=== PATIENT | male | born 1960 | race Two or more races ===

== ENCOUNTER 2025-07-24 12:35 | Emergency (ER) | payer MEDICAID, SELFPAY ==
[2025-07-24 12:38] VITALS: BMI 30.1
[2025-07-24 12:52] VITALS: BP 146/96; PULSE 84; RESP 18; TEMP 36.8; O2SAT 98
--- NOTE | 2025-07-24 13:25 | XR_ITS ---
Exam: Chest PA, lateral 2 views Technique: Chest upright PA lateral 2 views Date and time of exam: 07/24/2025, 1:34 PM INDICATION: Chest pain Findings: Left-sided dual lead cardiac pacing device. Cardiac silhouette is enlarged. There is central pulmonary vascular prominence. Lungs are hyperinflated. Ill-defined areas of opacification bilateral lung bases. Upper zones are clear. No pneumothorax. No acute bony abnormality. . Impression: Hyperinflation Cardiomegaly. Pulmonary vascular prominence. Scattered bibasilar atelectasis vs infiltrates.
--- NOTE | 2025-07-24 13:25 | EKG_ITS ---
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
--- NOTE | 2025-07-24 13:27 | EDRME_ITS ---
Rapid Medical Screening Exam RME Arrival date/time: 07/24/25 12:35 Chief Complaint: Extremity Injury, Lower Time Seen by Provider: 07/24/25 13:08 Vital signs: Vital Signs Temperature 98.2 F 07/24/25 12:52 Pulse Rate 84 07/24/25 12:52 Respiratory Rate 18 07/24/25 12:52 Blood Pressure 146/96 H 07/24/25 12:52 Pulse Oximetry (%) 98 07/24/25 12:52 Oxygen Delivery Method Room Air 07/24/25 12:52 RME Narrative: 64-year-old male reports he just had a pacemaker done about a week ago in [place] and decided to come to [place]. States he is missing a lot of the medications that they were supposed to give him during discharge one of them being Lasix. States he is on a total of 12 medications unsure of the names but was only given about 7 of them. Having shortness of breath and leg swelling which is the reason he came in today
[2025-07-24 14:28] LABS: Basophils # (Auto) 0.0 Thou/mm3 (0.0-0.2); Basophils % (Auto) 1 % (0-2.5); Eosinophils # (Auto) 0.1 Thou/mm3 (0.0-0.5); Eosinophils % (Auto) 3 % (0-10); Hematocrit 34.5 % (41.0-53.0); Hemoglobin 10.9 g/dL (13.5-16.0); Immature Granulocytes Auto 0.01 Thou/mm3 (0.00-0.00); Lymphocytes # (Auto) 0.9 Thou/mm3 (1.0-4.8); Lymphocytes % (Auto) 21 % (10-50); Mean Corpuscular HGB Conc 31.6 g/dl (31.0-37.0); Mean Corpuscular Hemoglobin 27.7 pg (25.0-35.0); Mean Corpuscular Volume 88 fL (80-100); Monocytes # (Auto) 0.5 Thou/mm3 (0.0-0.8); Monocytes % (Auto) 11 % (0-12); Neutrophils # (Auto) 2.7 Thou/mm3 (1.8-7.7); Neutrophils % (Auto) 64 % (37-80); Nucleated Red Blood Cell # 0.00 Thou/mm3 (0.00-0.00); Nucleated Red Blood Cell % 0 /100 WBC (0); Platelet Count 105 Thou/mm3 (140-440); RDW Standard Deviation 54.9 fL (35.1-43.9); Red Blood Count 3.93 Miln/mm3 (4.50-5.90); White Blood Count 4.2 Thou/mm3 (3.8-10.6)
[2025-07-24 14:37] LABS: Collection Type, Urine Clean Catch; Squamous Epithelial Cell,Urine 0 /hpf (0-5)
[2025-07-24 14:42] LABS: B-Type Natriuretic Peptide 723 pg/mL (0-100)
[2025-07-24 14:43] LABS: Alanine Aminotransferase 39 U/L (10-49); Albumin, Serum 3.9 gm/dL (3.4-4.8); Albumin/Globulin Ratio 1.6 (1.2-2.2); Alkaline Phosphatase 102 U/L (46-116); Anion Gap 8 (7-16); Aspartate Amino Transferase 43 U/L (0-34); BUN/Creatinine Ratio 15 Ratio (12-20); Bilirubin,Total 1.0 mg/dL (0.3-1.2); Blood Urea Nitrogen 15 mg/dL (9-23); Calcium 9.2 mg/dL (8.3-10.6); Calcium (Corrected) 9.3 mg/dL (8.5-10.1); Carbon Dioxide 27.0 mMol/L (20.0-31.0); Chloride 108 mMol/L (98-107); Creatinine (Component) 1.0 mg/dL (0.6-1.3); Estimated Creatinine Clearance 87.6 mL/min (>60); Globulin 2.4 gm/dL (2.3-3.5); Glucose 153 mg/dL (74-106); Osmolality,Calculated 288 (275-295); Potassium 3.6 mMol/L (3.4-5.1); Sodium 143 mMol/L (136-145); Total Protein 6.3 gm/dL (5.7-8.2); Troponin I 0.022 ng/mL (0.0-0.045); eGFR > 60 See Note
[2025-07-24 14:48] LABS: Bilirubin,Urine Negative (Negative); Blood,Urine Negative (Negative); Clarity,Urine Clear (Clear/Hazy); Color,Urine Lt-Yellow (Lt Yel-Yel); Glucose, Urine Negative (Negative); Ketones,Urine Negative (Negative); Leukocyte Esterase,Urine Negative (Negative); Nitrite,Urine Negative (Negative); PH,Urine 6.0 (5.0-7.0); Protein,Urine Negative (Neg - Trace); RBC,Urine 1 /hpf (0-3); Specific Gravity,Urine 1.017 (1.001-1.035); Urobilinogen,Urine Negative mg/dL (0.0-1.0); WBC,Urine < 1 /hpf (0-5)
[2025-07-24 14:53] VITALS: BP 149/93; PULSE 86; RESP 16; TEMP 36.6; O2SAT 98
[2025-07-24 14:54] LABS: Amphetamine/Methamp Scrn,U Negative (Negative); Barbiturate Screen,Urine Negative (Negative); Benzodiazepines Screen,Urine Negative (Negative); Benzoylecgonine Screen, Ur Negative (Negative); Fentanyl Screen,Urine Negative (Negative); Opiate Screen,Urine Negative (Negative); THC Screen,Urine Negative (Negative)
--- NOTE | 2025-07-24 15:45 | EDNOTE_ITS ---
Lower Extremity Injury RME/HPI General Chief Complaint: Extremity Injury, Lower Stated Complaint: LEG SWELLING S/P PACEMAKER Time Seen by Provider: 07/24/25 13:08 Arrival date/time: 07/24/25 12:35 RME / HPI RME / HPI Narrative: 64-year-old male reports he just had a pacemaker done about a week ago in [place] and decided to come to [place]. States he is missing a lot of the medications that they were supposed to give him during discharge one of them being Lasix. States he is on a total of 12 medications unsure of the names but was only given about 7 of them. Having shortness of breath and leg swelling which is the reason he came in today. This been ongoing for the last several weeks. Denies any other complaints patient is ambulatory. Related Data Previous Rx's ?Medication ?Instructions ?Recorded furosemide 40 mg tablet (Lasix) 40 mg PO QAM #30 tabs 07/24/25 potassium chloride 20 mEq 20 meq PO QDAY #30 tabs 06/27 0/25 tablet,extended release(part/cryst) Allergies Allergy/AdvReac Type Severity Reaction Status Date / Time No Known Allergies Allergy Verified 07/24/25 12:37 Review of Systems Review of Systems Narrative Review of Systems: Review of system reviewed and within normal limits except mentioned in HPI ED Exam Narrative Physical exam: VITAL SIGNS: Reviewed. GENERAL APPEARANCE: Alert and interactive, follows commands, no acute distress, HEAD AND FACE: Non-traumatic. ENT: PERRL, pink conjunctivitis, eyelid no trauma, Mucous membrane moist. NECK: Supple, nontender, no nuchal rigidity. CHEST: No tenderness, no crepitus, no paradoxical movement, no retractions. LUNGS: Clear, well ventilated, symmetric, no rales, no wheezing, no ronchi, no stridor, good breath sounds bilaterally. HEART: Regular rate, regular rhythm, no murmur, no gallops. ABDOMEN: Soft, positive bowel sounds, nondistended, no guarding, nontender, no rebound, no masses, RECTAL: Deferred. GENITAL: Deferred. NEUROLOGICAL: Gross motor function intact sensory function intact, Appropriate for age. MUSCULOSKELETAL: low back nontender, full range of motion. EXTREMITIES: +2 bilateral lower extremity edema, Nontender, full range of mo tion. SKIN: Color pink, dry, no rash, no lacerations, no abrasions, no contusions. LYMPHATICS: Deferred. Course Quality Measures none Orders Category Date Time Status EKG (ED ONLY) *Do not use* NOW Care 07/24/25 13:26 Completed IV [Insert IV] NOW Care 07/24/25 13:26 Active EKG (ED Only) Stat Exams 07/24/25 13:25 Draft XR chest 2V Stat Exams 07/24/25 13:25 Completed BNP [B-Type Natriuretic Peptide] Stat Lab 07/24/25 14:00 Completed CBC Stat Lab 07/24/25 14:00 Completed CMP [Comprehensive Metabolic Panel] Stat Lab 07/24/25 14:00 Completed Drug Screen,Urine Stat Lab 07/24/25 14:25 Completed Troponin I Stat Lab 07/24/25 14:00 Completed UA [Urinalysis] Stat Lab 07/24/25 14:25 Completed Aspirin Med 07/24/25 13:26 Discontinued 325 mg PO X1 ONE Furosemide [Lasix] Med 07/24/25 15:44 Discontinued 40 mg PO X1 ONE Ibuprofen Tab [Motrin Tab] Med 07/24/25 15:44 Discontinued 800 mg PO X1 ONE Vital Signs Vital signs: Vital Signs Temperature 98.2 F 07/24/25 12:52 Pulse Rate 84 07/24/25 12:52 Respiratory Rate 18 07/24/25 12:52 Blood Pressure 146/96 H 07/24/25 12:52 Pulse Oximetry (%) 98 07/24/25 12:52 Oxygen Delivery Method Room Air 07/24/25 12:52 Extremity Injury, Lower MDM Narrative MDM Narrative:: 64-year-old male reports he just had a pacemaker done about a week ago in [place] and decided to come to [place]. States he is missing a lot of the medications that they were supposed to give him during discharge one of them being Lasix. States he is on a total of 12 medications unsure of the names but was only given about 7 of them. Having shortness of breath and leg swelling which is the reason he came in today. This been ongoing for the last several weeks. Denies any other complaints patient is ambulatory. Patient's workup today came back unremarkable except for slightly elevated BNP. Patient was given a dose of Lasix in the emergency room. Patient will be sent home on Lasix. She is satting 98% on room air Chest x-ray showed Hyperinflation Cardiomegaly. Pulmonary vascular prominence. Scattered bibasilar atelectasis vs infiltrates. Patient data External records reviewed:: None Clinical information provided by:: patient Social determinants that could affect healthcare access:: none Patient has the following chronic illnesses:: History of congestive heart failure, hypertension How is presenting disease/condition affected by chronic disease/condition?: ex acerbated by Evaluation data The following diagnostics were reviewed and interpreted by me:: lab results, radiology exam(s) and EKG tracing(s) Lab and/or radiology exams considered but not ordered:: None Interpretation Summary: EKG as instructed by me showed atrial fibrillation, ventricular rate of 96 bpm, no ST segment elevation or depression noted. Medications / Prescriptions Medications or Prescriptions considered but not ordered:: None Medication administrations:: Medication Administration History Discontinued Medications Aspirin (Aspirin 325 Mg Tablet) 325 mg PO X1 ONE Stop: 07/24/25 13:27 Last Admin: 07/24/25 13:36 Dose: Not Given Documented By: HENRRY Non-Admin Reason: Patient Refused Furosemide (Furosemide 40 Mg Tablet) 40 mg PO X1 ONE Stop: 07/24/25 15:45 Last Admin: 07/24/25 15:52 Dose: 40 mg Documented By: JUAN PABLO Ibuprofen (Ibuprofen Tab 400 Mg Tablet) 800 mg PO X1 ONE Stop: 07/24/25 15:45 Last Admin: 07/24/25 15:52 Dose: 800 mg Documented By: JUAN PABLO Motrin Lasix and aspirin Consultations Consultation(s) initiated? (list below): No Diagnosis Extremity Injury, Lower Differential Diagnosis: other (Lower leg edema, history of CHF, hypertension) Most likely diagnosis given after review of the tests above:: Lower leg edema, history of CHF Admission Indicated Admission indicated?: not indicated Admission Request Was there a request for admission?: No Disposition Plan Disposition Plan: Discharge Discharge Attestation Discharge Attestation: The patient was given an opportunity to ask questions and understood the discharge instructions. Discharge instructions specifically effects, indications for sooner follow up or return to the emergency department, and the expected course of current diagnosis. Patient condition: Stable Discharge Plan Plan Patient Disposition: HOME (Self Care) Discharge Disposition comment: stable Prescriptions/Referrals Prescriptions/Med Rec: New furosemide [Lasix] 40 mg tablet 40 mg PO QAM Qty: 30 0RF potassium chloride 20 mEq tablet,ER particles/crystals 20 meq PO QDAY Qty: 30 0RF Referrals: No Primary/Family,Physician [Primary Care Provider] - In 1 week Problem List Clinical Impression: Leg swelling Patient/Caregiver Discharge Instructions Discharge Activity: activity as tolerated Education Materials: ED Leg Swelling in Both Legs Additional Instructions: Thank you for the opportunity for serving you today. You are stable for discharged . You are advised to: Follow-up with your PCP in 1 to 2 days Return to ED for worsening of symptoms Print Language: Iraqi Stand Alone Forms: Joelle Award Info., Patient Portal Info Letter PA/EMPLOYEE RELATIONS DIRECTOR Supervising Physician PA/EMPLOYEE RELATIONS DIRECTOR Supervising Physician: MD [place]
[2025-07-24 15:52] VITALS: BP 150/123; PULSE 86
[2025-07-24] MEDS: IBUPROFEN TAB 400 MG TABLET 800 MG PO (15:52)
== END 2025-07-24 16:16 | disposition home or self-care (01) ==
PROVIDERS: Physician Assistant; Emergency Provider Family Medicine
DX: M79.89 Other specified soft tissue disorders (principal); I48.91 Unspecified atrial fibrillation; I11.0 Hypertensive heart disease with heart failure; I50.9 Heart failure, unspecified
CPT/HCPCS: 36415; 71046; 80053; 80307; 81001; 83880; 84484; 85025; 93005; 99283; A9270

== ENCOUNTER 2025-07-29 08:12 | Emergency (ER) | payer MEDICAID, SELFPAY ==
[2025-07-29 08:13] VITALS: BMI 32.3
--- NOTE | 2025-07-29 08:16 | EKG_ITS ---
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: : 1960 Requested By: ED Temporary Provider Order Number: [id number] Reading MD: ED Temporary Provider Measurements Intervals [place] Rate: 93 P: [place]: QRS: -59 QRSD: 138 T: 115 QT: 393 QTc: 490 Interpretive Statements ATRIAL FIBRILLATION LEFT AXIS DEVIATION [QRS AXIS < -30] INTRAVENTRICULAR CONDUCTION DELAY [130+ ms QRS DURATION] POSSIBLE ANTERIOR MYOCARDIAL INFARCTION , OF INDETERMINATE AGE [30 ms Q WAVE IN V3/V4, OR R < 0.2 mV IN V4] Compared to ECG 07/24/2025 13:28:20 Myocardial infarct finding now present Left ventricular hypertrophy no longer present /store/S0/[id number]/[id number]
[2025-07-29 08:21] VITALS: BP 139/105; PULSE 86; RESP 24; TEMP 36.7; O2SAT 95
--- NOTE | 2025-07-29 08:30 | XR_ITS ---
Examination: PA lateral chest 2 views TECHNIQUE: Upright PA lateral chest 2 views Date and time: July 29, 2025 0940 hours, comparison July 24, 2025 INDICATIONS: Chest pain today. FINDINGS: Mild prominence left ventricle. Cardiac leads satisfactory position. No lobar pneumonia or pulmonary edema. Minor blunting of bilateral costophrenic angles. Mild vascular congestion IMPRESSION: Mild vascular congestion
--- NOTE | 2025-07-29 08:30 | XR_ITS ---
Examination: Venous duplex lower extremity sonogram, bilateral. Date and time of exam: July 29, 2025 0851 hours INDICATIONS: Bilateral leg swelling and pain beginning 4 days ago Technique: Multiple sonographic images of the deep venous system have been obtained. B-mode/2-D grayscale imaging of vascular structures and Doppler spectral analysis (waveforms) and color performed Both legs are examined. Findings: Deep venous systems do not demonstrate abnormal echogenicity. All visualized deep veins exhibit compressibility. All visualized deep veins exhibit augmentation. Impression: Negative for deep vein thrombosis
--- NOTE | 2025-07-29 08:31 | PD.EDRME ---
Rapid Medical Screening Exam RME Arrival date/time: 07/29/25 08:12 64-year-old male presents to Emergency Department a stating that he had a pacemaker placed in [place] approximately 3 weeks ago patient reports lower extremity swelling and difficulty sleeping Chief Complaint: Shortness of Breath/Dyspnea Vital signs: Vital Signs Temperature 98.1 F 07/29/25 08:21 Pulse Rate 86 07/29/25 08:21 Respiratory Rate 24 H 07/29/25 08:21 Blood Pressure 139/105 H 07/29/25 08:21 Pulse Oximetry (%) 95 07/29/25 08:21 Oxygen Delivery Method Room Air 07/29/25 08:21
[2025-07-29 08:52] LABS: Collection Type, Urine Clean Catch; RBC,Urine 0 /hpf (0-3); Squamous Epithelial Cell,Urine 0 /hpf (0-5)
[2025-07-29 08:55] LABS: Bilirubin,Urine Negative (Negative); Blood,Urine Negative (Negative); Clarity,Urine Clear (Clear/Hazy); Color,Urine Colorless (Lt Yel-Yel); Culture Indicated,Urine Not Indicated; Glucose, Urine Negative (Negative); Ketones,Urine Negative (Negative); Leukocyte Esterase,Urine Negative (Negative); Nitrite,Urine Negative (Negative); PH,Urine 7.0 (5.0-7.0); Protein,Urine Negative (Neg - Trace); Specific Gravity,Urine 1.007 (1.001-1.035); Urobilinogen,Urine Negative mg/dL (0.0-1.0); WBC,Urine < 1 /hpf (0-5)
[2025-07-29 09:02] LABS: Amphetamine/Methamp Scrn,U Negative (Negative); Barbiturate Screen,Urine Negative (Negative); Benzodiazepines Screen,Urine Negative (Negative); Benzoylecgonine Screen, Ur Negative (Negative); Fentanyl Screen,Urine Negative (Negative); Opiate Screen,Urine Negative (Negative); THC Screen,Urine Negative (Negative)
[2025-07-29 10:15] LABS: Basophils # (Auto) 0.0 Thou/mm3 (0.0-0.2); Basophils % (Auto) 1 % (0-2.5); Eosinophils # (Auto) 0.1 Thou/mm3 (0.0-0.5); Eosinophils % (Auto) 2 % (0-10); Hematocrit 36.9 % (41.0-53.0); Hemoglobin 11.5 g/dL (13.5-16.0); Immature Granulocytes Auto 0.02 Thou/mm3 (0.00-0.00); Lymphocytes # (Auto) 1.2 Thou/mm3 (1.0-4.8); Lymphocytes % (Auto) 22 % (10-50); Mean Corpuscular HGB Conc 31.2 g/dl (31.0-37.0); Mean Corpuscular Hemoglobin 27.5 pg (25.0-35.0); Mean Corpuscular Volume 88 fL (80-100); Monocytes # (Auto) 0.8 Thou/mm3 (0.0-0.8); Monocytes % (Auto) 14 % (0-12); Neutrophils # (Auto) 3.3 Thou/mm3 (1.8-7.7); Neutrophils % (Auto) 61 % (37-80); Nucleated Red Blood Cell # 0.00 Thou/mm3 (0.00-0.00); Nucleated Red Blood Cell % 0 /100 WBC (0); Platelet Count 85 Thou/mm3 (140-440); RDW Standard Deviation 54.6 fL (35.1-43.9); Red Blood Count 4.18 Miln/mm3 (4.50-5.90); White Blood Count 5.4 Thou/mm3 (3.8-10.6)
[2025-07-29 10:25] LABS: INR 1.3 (0.9-1.3); Partial Thromboplastin Time 30.0 Seconds (22.0-36.0); Prothrombin Time 13.7 Seconds (9.0-12.2)
[2025-07-29 10:30] LABS: Alanine Aminotransferase 49 U/L (10-49); Albumin, Serum 4.2 gm/dL (3.4-4.8); Albumin/Globulin Ratio 1.7 (1.2-2.2); Alkaline Phosphatase 95 U/L (46-116); Anion Gap 11 (7-16); Aspartate Amino Transferase 61 U/L (0-34); BUN/Creatinine Ratio 15 Ratio (12-20); Bilirubin,Total 1.1 mg/dL (0.3-1.2); Blood Urea Nitrogen 17 mg/dL (9-23); Calcium 9.7 mg/dL (8.3-10.6); Calcium (Corrected) 9.7 mg/dL (8.5-10.1); Carbon Dioxide 28.0 mMol/L (20.0-31.0); Chloride 106 mMol/L (98-107); Creatinine (Component) 1.1 mg/dL (0.6-1.3); Estimated Creatinine Clearance 82.3 mL/min (>60); Globulin 2.5 gm/dL (2.3-3.5); Glucose 117 mg/dL (74-106); Magnesium 1.8 mg/dL (1.6-2.6); Osmolality,Calculated 291 (275-295); Potassium 4.1 mMol/L (3.4-5.1); Sodium 145 mMol/L (136-145); Total Protein 6.7 gm/dL (5.7-8.2); Troponin I 0.028 ng/mL (0.0-0.045); eGFR > 60 See Note
[2025-07-29 10:31] LABS: B-Type Natriuretic Peptide 851 pg/mL (0-100)
[2025-07-29 11:25] VITALS: BP 148/103; PULSE 88; RESP 16; TEMP 36.6; O2SAT 98
--- NOTE | 2025-07-29 11:30 | PD.EDSOB ---
ED SOB =RME/HPI General Chief Complaint: Shortness of Breath/Dyspnea Stated Complaint: DIFF BREATHING x 2 DAYS, RECENT PACEMEAKER Time Seen by Provider: 07/29/25 11:23 Arrival date/time: 07/29/25 08:12 RME / HPI RME / HPI Narrative: 64-year-old male presents to Emergency Department a stating that he had a pacemaker placed in [place] approximately 3 weeks ago patient reports lower extremity swelling and difficulty sleeping. Patient has been having symptoms for the last 2 days. Patient denies any chest pain. Denies any fever denies any cough denies any other complaints no medication was taken prior to arrival. Related Data Previous Rx's ?Medication ?Instructions ?Recorded furosemide 40 mg tablet (Lasix) 40 mg PO QAM #30 tabs 07/24/25 potassium chloride 20 mEq 20 meq PO QDAY #30 tabs 07/24/25 tablet,extended release(part/cryst) furosemide 40 mg tablet (Lasix) 40 mg PO QDAY #30 tabs 07/29/25 potassium chloride 20 mEq oral 20 meq PO QDAY #30 ea 07/29/25 packet Allergies Allergy/AdvReac Type Severity Reaction Status Date / Time No Known Allergies Allergy Verified 07/29/25 08:15 Review of Systems Review of Systems Narrative Review of Systems: Review of system reviewed and within normal limits except mentioned in HPI ED Exam Narrative Physical exam: VITAL SIGNS: Reviewed. GENERAL APPEARANCE: Alert and interactive, follows commands, no acute distress, HEAD AND FACE: Non-traumatic. ENT: PERRL, pink conjunctivitis, eyelid no trauma, Mucous membrane moist. NECK: Supple, nontender, no nuchal rigidity. CHEST: No tenderness, no crepitus, no paradoxical movement, no retractions. LUNGS: Clear, well ventilated, symmetric, no rales, no wheezing, no ronchi, no stridor, good breath sounds bilaterally. HEART: Regular rate, regular rhythm, no murmur, no gallops. ABDOMEN: Soft, positive bowel sounds, nondistended, no guarding, nontender, no rebound, no masses, RECTAL: Deferred. GENITAL: Deferred. NEUROLOGICAL: Gross motor function intact sensory function intact, Appropriate for age. MUSCULOSKELETAL: low back nontender, full range of motion. EXTREMITIES:+ Bilateral +2 edema lower extremities, nontender, full range of motion. SKIN: Color pink, dry, no rash, no lacerations, no abrasions, no contusions. LYMPHATICS: Deferred. Course Quality Measures none Orders Category Date Time Status EKG (ED ONLY) *Do not use* NOW Care 07/29/25 08:16 Completed EKG (ED Only) Stat Exams 07/29/25 08:16 Draft US venous doppler LE BI Stat Exams 07/29/25 08:30 Completed XR chest 2V Stat Exams 07/29/25 08:30 Completed B-Type Natriuretic Peptide Stat Lab 07/29/25 09:55 Completed CBC Stat Lab 07/29/25 09:55 Completed Comprehensive Metabolic Panel Stat Lab 07/29/25 09:55 Completed Drug Screen,Urine Stat Lab 07/29/25 08:42 Completed Magnesium Stat Lab 07/29/25 09:55 Completed Partial Thromboplastin Time Stat Lab 07/29/25 09:55 Completed Prothrombin Time with INR Stat Lab 07/29/25 09:55 Completed Troponin I Stat Lab 07/29/25 09:55 Completed Urinalysis, C/S if Indicated Stat Lab 07/29/25 08:40 Completed Vital Signs Vital signs: Vital Signs Temperature 98.1 F 07/29/25 08:21 Pulse Rate 86 07/29/25 08:21 Respiratory Rate 24 H 07/29/25 08:21 Blood Pressure 139/105 H 07/29/25 08:21 Pulse Oximetry (%) 95 07/29/25 08:21 Oxygen Delivery Method Room Air 07/29/25 08:21 Shortness of Breath / Dyspnea MDM Narrative MDM Narrative:: 64-year-old male presents to Emergency Department a stating that he had a pacemaker placed in [place] approximately 3 weeks ago patient reports lower extremity swelling and difficulty sleeping. Patient has been having symptoms for the last 2 days. Patient denies any chest pain. Denies any fever denies any cough denies any other complaints no medication was taken prior to arrival. Laboratory workup all came back unremarkable except for slightly anemia of 11.5 CMP unremarkable creatinine 1.1 normal BNP slightly elevated 851. Chest x-ray showed vascular congestion otherwise unremarkable ultrasound of bilateral lower extremity negative for DVT. EKG showed A-fib rate controlled, ventricular rate of [address] segment elevation or depression noted. Patient was advised to follow-up with PCP in 1 to 2 days. Patient is safe to discharge home. Advised to continue taking Lasix and potassium. Patient appears nontoxic and hemodynamically stable .Decision to discharge the patient. The patient/family was given an opportunity to ask questions and understood their discharge instructions. Discharge instructions specifically included follow up provider and time frame, current and/or new medications and possible side effects, indications for sooner follow up or return to the emergency department, and the expected course of current diagnosis. Patient reports feeling better as well and giving evidence of significant clinical improvement, I believe patient is now a candidate for discharge. Patient data External records reviewed:: None Clinical information provided by:: patient Social determinants that could affect healthcare access:: none Patient has the following chronic illnesses:: Chronic A-fib, history of congestive heart failure, status post pacemaker placement How is presenting disease/condition affected by chronic disease/condition?: exacerbated by Evaluation data The following diagnostics were reviewed and interpreted by me:: lab results, radiology exam(s) and EKG tracing(s) Lab and/or radiology exams considered but not ordered:: None Interpretation Summary: See results in MDM Medications / Prescriptions Medications or Prescriptions considered but not ordered:: None Medication administrations:: None Consultations Consultation(s) initiated? (list below): No Diagnosis Shortness of Breath Differential Diagnosis: congestive heart failure and other (Shortness of breath, history of congestive heart failure) Most likely diagnosis given after review of the tests above:: Shortness of breath Admission Indicated Admission indicated?: not indicated Admission Request Was there a request for admission?: No Disposition Plan Disposition Plan: Discharge Discharge Attestation Discharge Attestation: The patient was given an opportunity to ask questions and understood the discharge instructions. Discharge instructions specifically effects, indications for sooner follow up or return to the emergency department, and the expected course of current diagnosis. Patient condition: Stable Discharge Plan Plan Patient Disposition: HOME (Self Care) Discharge Disposition comment: stable Prescriptions/Referrals Prescriptions/Med Rec: New furosemide [Lasix] 40 mg tablet 40 mg PO QDAY Qty: 30 0RF potassium chloride 20 mEq packet 20 meq PO QDAY Qty: 30 0RF No Action furosemide [Lasix] 40 mg tablet 40 mg PO QAM Qty: 30 0RF potassium chloride 20 mEq tablet,ER particles/crystals 20 meq PO QDAY Qty: 30 0RF Referrals: No Primary/Family,Physician [Primary Care Provider] - In 1 week Problem List Clinical Impression: Leg swelling, Shortness of breath Patient/Caregiver Discharge Instructions Discharge Activity: activity as tolerated Education Materials: ED Shortness of Breath (Dyspnea) Additional Instructions: Thank you for the opportunity for serving you today. You are stable for discharged . You are advised to: Follow-up with your PCP in 1 to 2 days Return to ED for worsening of symptoms Take medication as prescribed Print Language: Armenian Stand Alone Forms: Joelle Award Info., Patient Portal Info Letter PA/AMANDA Supervising Physician PA/BRAKE OPERATOR HEAVY DUTY Supervising Physician: MD [place]
== END 2025-07-29 12:30 | disposition home or self-care (01) ==
PROVIDERS: Nurse Practitioner Primary Care; Emergency Provider Family Medicine
DX: R06.02 Shortness of breath (principal); M79.89 Other specified soft tissue disorders; R22.43 Localized swelling, mass and lump, lower limb, bilateral; I48.91 Unspecified atrial fibrillation; R09.89 Other specified symptoms and signs involving the circulatory and respiratory systems; Z95.0 Presence of cardiac pacemaker
CPT/HCPCS: 36415; 71046; 80053; 80307; 81001; 83735; 83880; 84484; 85025; 85610; 85730; 93005; 93970; 99284

== ENCOUNTER 2025-08-07 16:26 | Emergency (ER) | payer MEDICAID, SELFPAY ==
[2025-08-07 16:37] VITALS: BP 133/86; PULSE 65; RESP 19; TEMP 36.7; O2SAT 96; BMI 30.1
--- NOTE | 2025-08-07 17:27 | EDRME_ITS ---
Rapid Medical Screening Exam RME Arrival date/time: 08/07/25 16:26 Chief Complaint: Shortness of Breath/Dyspnea Time Seen by Provider: 08/07/25 17:20 Vital signs: Vital Signs Temperature 98.0 F 08/07/25 16:37 Pulse Rate 65 08/07/25 16:37 Respiratory Rate 19 08/07/25 16:37 Blood Pressure 133/86 H 08/07/25 16:37 Pulse Oximetry (%) 96 08/07/25 16:37 Oxygen Delivery Method Room Air 08/07/25 16:37 RME Narrative: 64-year-old male presents to Emergency Department a stating that he had a pacemaker placed in [place] approximately 5 weeks ago patient reports lower extr emity swelling and difficulty breathing here for same on 07/29/25. However also brought in for left leg pain, states [employer] board fell on it yesterday.
--- NOTE | 2025-08-07 17:28 | EKG_ITS ---
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
--- NOTE | 2025-08-07 17:28 | XR_ITS ---
EXAMINATION: Ankle, left 2 views Technique: Ankle AP, lateral 2 views Date and time of exam: August 07 70,025, 1730 hrs. Indications: Heavy object fell on the patient's ankle today, ankle pain. Findings: Healed fracture distal fibular shaft with satisfactory position orthopedic hardware No acute fracture No ankle dislocation Impression: No acute fracture
--- NOTE | 2025-08-07 17:28 | XR_ITS ---
Examination: Foot, left, 3 views Technique: AP, oblique, lateral views foot, 3 views Date and time of exam: August 07, 2025, 1730 hrs. Indications: Heavy object fell on the patient's foot today, foot pain Findings: Moderate hallux valgus bunion deformity Soft tissue swelling dorsum of the foot No acute fracture Impression: No acute fracture
--- NOTE | 2025-08-07 17:30 | XR_ITS ---
Examination: PA lateral chest 2 views Technique: Upright PA lateral chest 2 views Date and time: October 07, 2025 1734 hrs., Comparison 07/29/2025 Indications: Shortness of breath beginning 3 days ago. Findings: Mild enlargement cardiac contour. Mild prominence pulmonary vasculature Pneumonia in the posterior basal segment right lower lobe obscuring detail of the posterior hemidiaphragm, noted on the lateral view No pulmonary edema Impression: Early pneumonia right lower lobe
[2025-08-07 18:09] VITALS: BP 131/92; PULSE 91; RESP 16; TEMP 36.7; O2SAT 96
[2025-08-07 18:15] LABS: Basophils # (Auto) 0.0 Thou/mm3 (0.0-0.2); Basophils % (Auto) 1 % (0-2.5); Eosinophils # (Auto) 0.1 Thou/mm3 (0.0-0.5); Eosinophils % (Auto) 2 % (0-10); Hematocrit 32.0 % (41.0-53.0); Hemoglobin 10.3 g/dL (13.5-16.0); Immature Granulocytes Auto 0.02 Thou/mm3 (0.00-0.00); Lymphocytes # (Auto) 1.2 Thou/mm3 (1.0-4.8); Lymphocytes % (Auto) 19 % (10-50); Mean Corpuscular HGB Conc 32.2 g/dl (31.0-37.0); Mean Corpuscular Hemoglobin 28.2 pg (25.0-35.0); Mean Corpuscular Volume 88 fL (80-100); Monocytes # (Auto) 0.8 Thou/mm3 (0.0-0.8); Monocytes % (Auto) 12 % (0-12); Neutrophils # (Auto) 4.1 Thou/mm3 (1.8-7.7); Neutrophils % (Auto) 67 % (37-80); Nucleated Red Blood Cell # 0.00 Thou/mm3 (0.00-0.00); Nucleated Red Blood Cell % 0 /100 WBC (0); Platelet Count 99 Thou/mm3 (140-440); RDW Standard Deviation 52.4 fL (35.1-43.9); Red Blood Count 3.65 Miln/mm3 (4.50-5.90); White Blood Count 6.2 Thou/mm3 (3.8-10.6)
[2025-08-07 18:29] LABS: Amphetamine/Methamp Scrn,U Negative (Negative); Barbiturate Screen,Urine Negative (Negative); Benzodiazepines Screen,Urine Negative (Negative); Benzoylecgonine Screen, Ur Negative (Negative); Fentanyl Screen,Urine Negative (Negative); Opiate Screen,Urine Negative (Negative); THC Screen,Urine Negative (Negative)
[2025-08-07 18:34] LABS: Alanine Aminotransferase 45 U/L (10-49); Albumin, Serum 3.8 gm/dL (3.4-4.8); Albumin/Globulin Ratio 1.4 (1.2-2.2); Alkaline Phosphatase 109 U/L (46-116); Anion Gap 9 (7-16); Aspartate Amino Transferase 51 U/L (0-34); BUN/Creatinine Ratio 15 Ratio (12-20); Bilirubin,Total 0.8 mg/dL (0.3-1.2); Blood Urea Nitrogen 16 mg/dL (9-23); Calcium 8.7 mg/dL (8.3-10.6); Calcium (Corrected) 8.9 mg/dL (8.5-10.1); Carbon Dioxide 28.1 mMol/L (20.0-31.0); Chloride 106 mMol/L (98-107); Creatinine (Component) 1.1 mg/dL (0.6-1.3); Estimated Creatinine Clearance 79.6 mL/min (>60); Globulin 2.7 gm/dL (2.3-3.5); Glucose 133 mg/dL (74-106); Osmolality,Calculated 288 (275-295); Potassium 3.2 mMol/L (3.4-5.1); Sodium 143 mMol/L (136-145); Total Protein 6.5 gm/dL (5.7-8.2); Troponin I 0.024 ng/mL (0.0-0.045); eGFR > 60 See Note
[2025-08-07] MEDS: HYDROcodone/APAP 5/325 TABLET 1 TAB PO (18:38)
[2025-08-07 18:44] LABS: B-Type Natriuretic Peptide 507 pg/mL (0-100)
[2025-08-07 20:31] VITALS: BP 143/91; PULSE 98; RESP 19; O2SAT 95
--- NOTE | 2025-08-07 20:50 | PD.EDEXREM ---
ED Extremity Problem RME/HPI General Chief complaint: Urogenital-Male Stated complaint: B/L LEG & TESTICLE SWELLING Time Seen by Provider: 08/07/25 17:20 Arrival date/time: 08/07/25 16:26 RME / HPI RME / HPI Narrative: 64-year-old male presents to Emergency Department a stating that he had a pacemaker placed in [place] approximately 5 weeks ago patient reports lower extremity swelling and difficulty breathing here for same on 07/29/25. However also brought in for left leg pain, [employer] fell on it yesterday. Dr. Celestin?s Main ED Evaluation: 64yo male Related Data Previous Rx's ?Medication ?Instructions ?Recorded furosemide 40 mg tablet (Lasix) 40 mg PO QAM #30 tabs 07/24/25 potassium chloride 20 mEq 20 meq PO QDAY #30 tabs 07/24/25 tablet,extended release(part/cryst) furosemide 40 mg tablet (Lasix) 40 mg PO QDAY #30 tabs 07/29/25 potassium chloride 20 mEq oral 20 meq PO QDAY #30 ea 07/29/25 packet Allergies Allergy/AdvReac Type Severity Reaction Status Date / Time No Known Allergies Allergy Verified 08/07/25 16:29 Review of Systems Review of Systems Systems Reviewed: All systems reviewed, normal except as documented Past Medical History Past Medical History CARDIAC: Positive Congestive Heart Failure and Hypertension RESPIRATORY: Positive Asthma; Negative Chronic Obstructive Pulmonary Disease (COPD) GASTROINTESTINAL: Positive Hepatitis (hep c) GENITOURINARY: Negative Renal Disease ENDOCRINE: Positive Diabetes Mellitus Type 2; Negative Diabetes Mellitus Type 1 Surgical History SURGICAL: Positive Pacemaker Social History SMOKING STATUS: Never smoker ED Exam Narrative Physical exam: GENERAL APPEARANCE: alert and oriented x 4, well-developed, well-nourished, no acute distress VITALS: All vitals were reviewed and the pulse ox is 95% on room air, which is normal according to my interpretation. HEENT: Normocephalic, atraumatic; pupils equal, round, reactive to light; EOMI; mucous membranes pink, moist; oropharynx clear NECK: Supple LUNGS: CTABL; no wheezes, no rales, no rhonchi HEART: Regular rate, regular rhythm; normal S1, S2; no murmurs ABDOMEN: non distended; normal BS; soft, no tenderness, no guarding, no rebound; no masses, no organomegaly, no hernia BACK: no CVA tenderness EXTREMITIES: atraumatic; no edema NEUROLOGIC: awake; alert and oriented x4; cranial nerves II-XII grossly intact; no focal sensory or motor deficits PSYCHIATRIC: appropriate mood and affect SKIN: warm, dry, normal color; no rashes Course Quality Measures none Orders Category Date Time Status EKG (ED ONLY) *Do not use* NOW Care 08/07/25 17:28 Completed EKG (ED Only) Stat Exams 08/07/25 17:28 Draft XR ankle LT 2V Stat Exams 08/07/25 17:28 Completed XR chest 2V Stat Exams 08/07/25 17:30 Completed XR foot comp LT min 3V Stat Exams 08/07/25 17:28 Completed BNP [B-Type Natriuretic Peptide] Stat Lab 08/07/25 17:40 Completed CBC Stat Lab 08/07/25 17:40 Completed CMP [Comprehensive Metabolic Panel] Stat Lab 08/07/25 17:40 Completed Drug Screen,Urine Stat Lab 08/07/25 18:00 Completed Troponin I Stat Lab 08/07/25 17:40 Completed HYDROcodone*/APAP 5/325 [[place] 5/325] Med 08/07/25 17:28 Discontinued 1 tab PO X1 ONE Vital Signs Vital signs: Vital Signs Temperature 98.0 F 08/07/25 16:37 Pulse Rate 65 08/07/25 16:37 Respiratory Rate 19 08/07/25 16:37 Blood Pressure 133/86 H 08/07/25 16:37 Pulse Oximetry (%) 96 08/07/25 16:37 Oxygen Delivery Method Room Air 08/07/25 16:37 Extremity Problem MDM Narrative MDM Narrative:: Scribe Attestation: 08/07/25 - Angelina Ratliff am scribing for and in the presence of Dr. Celestin. Patient data External records reviewed:: [facility] previous records (Per chart review, patient was seen here on 07/29/25 for leg swelling.) Clinical information provided by:: patient Social determinants that could affect healthcare access:: none Patient has the following chronic illnesses:: DM, HTN, asthma How is presenting disease/condition affected by chronic disease/condition?: uneffected by Evaluation data The following diagnostics were reviewed and interpreted by me:: lab results, radiology exam(s) and EKG tracing(s) Lab and/or radiology exams considered but not ordered:: none Interpretation Summary: EKG done at [facility] Report Signed Patient: CYN BONILLA Record#: [id number] Birthdate: 1960 Age/Sex: 64 / M Location: [facility] Attending Dr: Ordering Physician: Nicole Cooley PA-C Date of Service: 08/07/25 Procedure(s): XR chest 2V Accession Number(s): [id number] cc: Nicole Cooley PA-C; Mj De La Cruz MD; NO PRIMARY/FAMILY,PHYSICIAN~ Examination: PA lateral chest 2 views Technique: Upright PA lateral chest 2 views Date and time: October 07, 2025 1734 hrs., Comparison 07/29/2025 Indications: Shortness of breath beginning 3 days ago. Findings: Mild enlargement cardiac contour. Mild prominence pulmonary vasculature Pneumonia in the posterior basal segment right lower lobe obscuring detail of the posterior hemidiaphragm, noted on the lateral view No pulmonary edema Impression: Early pneumonia right lower lobe Dictated By: Mj De La Cruz MD Signed By: <Electronically signed by Mj De La Cruz MD in [place]> 08/07/25 1840 [facility] Report Signed Patient: CYN BONILLA Record#: [id number] Birthdate: 1960 Age/Sex: 64 / M Location: [facility] Attending Dr: Ordering Physician: Nicole Cooley PA-C Date of Service: 08/07/25 Procedure(s): XR foot comp LT min 3V Accession Number(s): [id number] cc: Nicole Cooley PA-C; Mj De La Cruz MD; NO PRIMARY/FAMILY,PHYSICIAN~ Examination: Foot, left, 3 views Technique: AP, oblique, lateral views foot, 3 views Date and time of exam: August 07, 2025, 1730 hrs. Indications: Heavy object fell on the patient's foot today, foot pain Findings: Moderate hallux valgus bunion deformity Soft tissue swelling dorsum of the foot No acute fracture Impression: No acute fracture Dictated By: Mj De La Cruz MD Signed By: <Electronically signed by Mj De La Cruz MD in OV> 08/07/25 1842 [facility] Report Signed Patient: CYN BONILLA Record#: [id number] Birthdate: 1960 Age/Sex: 64 / M Location: [facility] Attending Dr: Ordering Physician: Nicole Cooley PA-C Date of Service: 08/07/25 Procedure(s): XR ankle LT 2V Accession Number(s): [id number] cc: Nicole Cooley PA-C; Mj De La Cruz MD; NO PRIMARY/FAMILY,PHYSICIAN~ EXAMINATION: Ankle, left 2 views Technique: Ankle AP, lateral 2 views Date and time of exam: August 07 70,025, 1730 hrs. Indications: Heavy object fell on the patient's ankle today, ankle pain. Findings: Healed fracture distal fibular shaft with satisfactory position orthopedic hardware No acute fracture No ankle dislocation Impression: No acute fracture Dictated By: Mj De La Cruz MD Signed By: <Electronically signed by Mj De La Cruz MD in [place]> 08/07/25 1817 Medications / Prescriptions Medications or Prescriptions considered but not ordered:: none Medication administrations:: Medication Administration History Discontinued Medications Hydrocodone Bitart/Acetaminophen (Hydrocodone/Apap 5/325 Tablet) 1 tab PO X1 ONE Stop: 08/07/25 17:29 Last Admin: 08/07/25 18:38 Dose: 1 tab Documented By: DB see above Discharge Plan Prescriptions/Referrals Prescriptions/Med Rec: No Action furosemide [Lasix] 40 mg tablet 40 mg PO QAM Qty: 30 0RF potassium chloride 20 mEq tablet,ER particles/crystals 20 meq PO QDAY Qty: 30 0RF furosemide [Lasix] 40 mg tablet 40 mg PO QDAY Qty: 30 0RF potassium chloride 20 mEq packet 20 meq PO QDAY Qty: 30 0RF Referrals: No Primary/Family,Physician [Primary Care Provider] - In 1 week Patient/Caregiver Discharge Instructions Print Language: [place]
--- NOTE | 2025-08-07 21:43 | PC.NURSE ---
Pt ambulated without assist would not return to treatment area states has an emergency at home and will return tonight or tomorrow. notified provider
== END 2025-08-07 23:44 | disposition left against medical advice (07) ==
PROVIDERS: Physician Assistant; Emergency Provider Emergency Medicine
DX: M79.89 Other specified soft tissue disorders (principal); M79.605 Pain in left leg; Z95.0 Presence of cardiac pacemaker; Z53.29 Procedure and treatment not carried out because of patient's decision for other reasons
CPT/HCPCS: 36415; 71046; 73600; 73630; 80053; 80307; 83880; 84484; 85025; 93005; 99283; A9270